=== PATIENT | female | born 1990 | race Caucasian/White ===

== ENCOUNTER 2024-07-31 13:32 | Emergency (ER) | payer OTHER ==
[~2024-07-31] VITALS: Ht 162.6 cm; Wt 54.0 kg
[2024-07-31 13:55] VITALS: TEMP 98.6
[2024-07-31] MEDS ORDERED: BACL5TAB PO (15:25)
[2024-07-31] MEDS ORDERED: KETO10TA2 PO (15:25)
[2024-07-31 15:33] VITALS: BP 114/88; O2SAT 100
== END 2024-07-31 15:33 | disposition home or self-care (01) ==
LOC: ER 13:37
DX: S89.82XA Other specified injuries of left lower leg, initial encounter (principal); F17.200 Nicotine dependence, unspecified, uncomplicated; Z79.899 Other long term (current) drug therapy; X58.XXXA Exposure to other specified factors, initial encounter; Y93.89 Activity, other specified; Y92.89 Other specified places as the place of occurrence of the external cause; Y99.8 Other external cause status
CPT/HCPCS: 73564-TC